=== PATIENT | male | born 1980 | race Caucasian/White ===

== ENCOUNTER 2019-08-06 06:52 | Inpatient (IN) | payer SELFPAY ==
[2019-08-06 07:27] LABS: #Lymphocytes 1.5 thou/uL (1.20-3.40); #Monocytes 0.6 thou/uL (0.11-0.59); #Neutrophils 11.5 thou/uL (1.40-6.50); %Basophils 0.2 % (0.0-1.0); %Eosinophils 0.2 % (0.0-10.0); %Lymphocytes 10.8 % (21.0-51.0); %Monocytes 4.1 % (0.0-10.0); %Neutrophils 84.7 % (42.0-75.0); Hemoglobin 16.3 g/dL (14.0-18.0); Mean Corpuscular HGB CONC 34.1 g/dL (32.0-36.0); Mean Corpuscular Volume 91.1 fL (78.0-98.0); Mean Platelet Volume 7.3 fL (7.4-10.4); Platelet Count 213 thou/uL (130-400); RBC Distribution Width 12.7 % (11.5-14.5); Red Blood Cell (RBC) Count 5.26 mill/uL (4.70-6.10); White Blood Cell (WBC) Count 13.6 thou/uL (4.8-10.8)
[2019-08-06 07:50] LABS: Phosphorus 2.7 mg/dL (2.3-4.7)
[2019-08-06 07:56] LABS: ALT (SGPT) 32 U/L (8-55); AST (SGOT) 17 U/L (5-34); Albumin 4.5 g/dL (3.5-5.0); Alkaline Phosphatase 105 U/L (40-110); Anion Gap 14 mmol/L (10-20); BUN (Urea Nitrogen) 17 mg/dL (8.9-20.6); Bilirubin, Total 0.4 mg/dL (0.2-1.2); CK (CPK) 71 U/L (30-200); Calc. Creatinine Clearance 0 mL/min (70-130); Calcium 9.9 mg/dL (7.8-10.44); Carbon Dioxide 21 mmol/L (22-29); Chloride 107 mmol/L (98-107); Estimated GFR-MDRD Greater than 90; Globulin 2.6 g/dL (2.4-3.5); Glucose 160 mg/dL (70-105); Magnesium 2.1 mg/dL (1.6-2.6); Protein, Total 7.1 g/dL (6.0-8.3); Sodium 140 mmol/L (136-145)
[2019-08-06 08:10] LABS: Potassium 2.2 mmol/L (3.5-5.1)
[2019-08-06] MEDS ORDERED: Potassium Chloride 20 MEQ TAB ONE (08:46)
[2019-08-06] MEDS ORDERED: Labetalol HCl 100 MG/20 ML VIAL SLOW IVP PRN (10:48)
[2019-08-06] MEDS ORDERED: Promethazine HCl 12.5 MG in Sodium Chloride 0.9% 50 ML IVPB PRN (10:48)
[2019-08-06] MEDS ORDERED: hydrALAZINE 20 MG/ML VIAL SLOW IVP PRN (10:48)
[2019-08-06] MEDS ORDERED: cloNIDine 0.1 MG TAB PO PRN (10:48)
[2019-08-06] MEDS ORDERED: Ondansetron PF 4 MG/2 ML Vial IVP PRN (10:48)
[2019-08-06] MEDS ORDERED: HYDROcodone/Acetaminophen 5/325 mg Tablet PO PRN (10:50)
[2019-08-06] MEDS ORDERED: Acetaminophen 325 MG TAB PO PRN (10:50)
--- NOTE | 2019-08-06 10:52 | PDOC.HHP ---
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 No episodes for last three years. In ED, potassium checked and was 2.2. when discussing case with him offered nephrology consult and intensive workup of this condition, he states instead he would rather have repletion of potassium and be discharged to resume normal activities. Hospitalist ROS - Review of Systems Constitutional: reports: weakness. denies: fever, chills Eyes: denies: pain, vision change ENT: denies: throat pain, throat swelling Respiratory: denies: cough, shortness of breath Cardiovascular: denies: chest pain, palpitations Gastrointestinal: denies: nausea, vomiting, abdominal pain Genitourinary: denies: dysuria, frequency Musculoskeletal: reports: other (diffuse pain and ache with movement) Skin: denies: rash, lesions, jose, bruising, other Neurological: reports: weakness (global). denies: numbness, incoordination, change in speech All other systems reviewed; all pertinent +/- noted in HPI/Subj Hospitalist History - Past Medical History Other Medical History: hypokalemia - Past Surgical History Other Surgical History: knee surgery - Family History Other Family History: hypokalemia - Social History Smoking Status: Current every day smoker Alcohol: reports: None Drugs: reports: none - Exam General Appearance: NAD, awake alert Eye: PERRL, anicteric sclera ENT: normocephalic atraumatic, no oropharyngeal lesions, moist mucosa Neck: supple, symmetric, no JVD, no thyromegaly, no lymphadenopathy, no carotid bruit Heart: RRR, no murmur, no gallops, no rubs, normal peripheral pulses Respiratory: CTAB, no wheezes, no rales, no ronchi, normal chest expansion, no tachypnea, normal percussion Gastrointestinal: soft, non-tender, non-distended, normal bowel sounds, no palpable masses, no hepatomegaly, no splenomegaly, no bruit Extremities: no cyanosis, no clubbing, no edema Skin: normal turgor, no lesions, no rashes Neurological: cranial nerve grossly intact, normal sensation to touch, no focal deficits, no new deficit Neurological - other findings: sensation preserved, motor function limited by pain Musculoskeletal: generalized weakness Musculoskeletal - other findings: weakness and pain with ROM of all extremities , can move alll extremities Psychiatric: normal affect, normal behavior, A&O x 3 Hospitalist Results - Labs Result Diagrams: 08/06/19 07:19 08/06/19 16:03 Lab results: WBC 13.6 thou/uL (4.8-10.8) H 08/06/19 07:19 Hgb 16.3 g/dL (14.0-18.0) 08/06/19 07:19 Hct 47.9 % (42.0-52.0) 08/06/19 07:19 MCV 91.1 fL (78.0-98.0) 08/06/19 07:19 Plt Count 213 thou/uL (130-400) 08/06/19 07:19 Neutrophils % 84.7 % (42.0-75.0) H 08/06/19 07:19 Sodium 140 mmol/L (136-145) 08/06/19 07:19 Potassium 2.2 mmol/L (3.5-5.1) L* 08/06/19 07:19 Chloride 107 mmol/L (98-107) 08/06/19 07:19 Carbon Dioxide 21 mmol/L (22-29) L 08/06/19 07:19 BUN 17 mg/dL (8.9-20.6) 08/06/19 07:19 Creatinine 0.81 mg/dL (0.7-1.3) 08/06/19 07:19 Glucose 160 mg/dL (70-105) H 08/06/19 07:19 Calcium 9.9 mg/dL (7.8-10.44) 08/06/19 07:19 Total Bilirubin 0.4 mg/dL (0.2-1.2) 08/06/19 07:19 AST 17 U/L (5-34) 08/06/19 07:19 ALT 32 U/L (8-55) 08/06/19 07:19 Alkaline Phosphatase 105 U/L (40-110) 08/06/19 07:19 Creatine Kinase 71 U/L (30-200) 08/06/19 07:19 Serum Total Protein 7.1 g/dL (6.0-8.3) 08/06/19 07:19 Albumin 4.5 g/dL (3.5-5.0) 08/06/19 07:19 Hospitalist H&P A/P - Problem (1) Hypokalemic periodic paralysis Code(s): G72.3 - PERIODIC PARALYSIS Status: Acute (2) Hypomagnesemia Code(s): E83.42 - HYPOMAGNESEMIA Status: Acute (3) Hypophosphatemia Code(s): E83.39 - OTHER DISORDERS OF PHOSPHORUS METABOLISM Status: Acute - Plan Plan: # hypokalemia - severe, reports history of "periodic hypokalemic paralysis" which presents like this every few years, potassium is very low and has been repleted with minimal improvement, will continue to trend BMP q8h and daily CBC and magnesium and replete as needed, initially was hopeful would be able to replete and discharge without issue however now am thinking patient will likely need nephrology consult if not imrpoved overnight with frequent potassium infusions. will monitor closely and further plan based on clinical progress
[2019-08-06] MEDS ORDERED: Morphine 2 MG/ML SYRINGE SLOW IVP PRN (15:44)
[2019-08-06] MEDS ORDERED: Morphine 2 MG/ML SYRINGE ONE (15:56)
[2019-08-06] MEDS ORDERED: Potassium Chloride 40 MEQ in Sodium Chloride 0.9% 250 ML 250 ML IVPB SCH (16:00)
[2019-08-06 16:52] LABS: Anion Gap 10 mmol/L (10-20); BUN (Urea Nitrogen) 16 mg/dL (8.9-20.6); Calc. Creatinine Clearance 0 mL/min (70-130); Calcium 8.4 mg/dL (7.8-10.44); Carbon Dioxide 21 mmol/L (22-29); Chloride 111 mmol/L (98-107); Estimated GFR-MDRD Greater than 90; Glucose 98 mg/dL (70-105); Magnesium 1.9 mg/dL (1.6-2.6); Sodium 140 mmol/L (136-145)
[2019-08-06] MEDS: Senokot S 8.6-50 MG TAB PO SCH (21:13)
[2019-08-06] MEDS: Potassium Chloride 20 MEQ in Premix Bag 1 BAG IVPB SCH ×3 (21:13→22:36)
[2019-08-06 22:00] VITALS: BMI 32.0
[2019-08-06] MEDS: predniSONE 20 MG TAB PO SCH (22:36)
[2019-08-07 00:58] LABS: Anion Gap 10 mmol/L (10-20); BUN (Urea Nitrogen) 17 mg/dL (8.9-20.6); Calc. Creatinine Clearance 217 mL/min (70-130); Calcium 8.2 mg/dL (7.8-10.44); Carbon Dioxide 26 mmol/L (22-29); Chloride 109 mmol/L (98-107); Estimated GFR-MDRD Greater than 90; Glucose 100 mg/dL (70-105); Potassium 4.4 mmol/L (3.5-5.1); Sodium 141 mmol/L (136-145)
[2019-08-07 04:21] LABS: #Eosinphils 0.1 thou/uL (0.0-0.7); #Lymphocytes 1.7 thou/uL (1.20-3.40); #Monocytes 0.5 thou/uL (0.11-0.59); #Neutrophils 8.1 thou/uL (1.40-6.50); %Basophils 0.3 % (0.0-1.0); %Eosinophils 0.7 % (0.0-10.0); %Lymphocytes 16.1 % (21.0-51.0); %Monocytes 4.4 % (0.0-10.0); %Neutrophils 78.4 % (42.0-75.0); Hemoglobin 14.7 g/dL (14.0-18.0); Mean Corpuscular HGB CONC 33.9 g/dL (32.0-36.0); Mean Corpuscular Volume 91.3 fL (78.0-98.0); Mean Platelet Volume 7.9 fL (7.4-10.4); Platelet Count 181 thou/uL (130-400); Red Blood Cell (RBC) Count 4.75 mill/uL (4.70-6.10); White Blood Cell (WBC) Count 10.3 thou/uL (4.8-10.8)
[2019-08-07 07:44] VITALS: TEMP 99
[2019-08-07 08:31] LABS: Anion Gap 12 mmol/L (10-20); BUN (Urea Nitrogen) 12 mg/dL (8.9-20.6); Calc. Creatinine Clearance 222 mL/min (70-130); Calcium 8.8 mg/dL (7.8-10.44); Carbon Dioxide 24 mmol/L (22-29); Chloride 106 mmol/L (98-107); Estimated GFR-MDRD Greater than 90; Glucose 157 mg/dL (70-105); Potassium 4.7 mmol/L (3.5-5.1); Sodium 137 mmol/L (136-145)
[2019-08-07] MEDS ORDERED: Polyethylene Glycol 3350 17 GM Packet PO SCH (09:00)
[2019-08-07] MEDS ORDERED: Enoxaparin Sodium 40 MG/0.4 ML SYRINGE SC SCH (09:00)
[2019-08-07] MEDS: predniSONE 20 MG TAB PO SCH (09:41)
[2019-08-07] MEDS: Senokot S 8.6-50 MG TAB PO SCH (09:41)
[2019-08-07 10:32] VITALS: BP 141/89
--- NOTE | 2019-08-07 19:13 | DIS ---
DATE OF ADMISSION: 08/06/2019 DATE OF DISCHARGE: 08/07/2019 PRIMARY CARE PROVIDER: Unknown. DISCHARGE DIAGNOSES: 1. Hypokalemia. 2. History of hypokalemic periodic paralysis. CONDITION OF THE PATIENT ON DAY OF DISCHARGE: Stable. I assessed Mr. Rodriguez on the day of discharge. He denies any chest pain or shortness of breath. Vital signs are stable. S1 and S2 are heard, regular. Lungs are clear to auscultation bilaterally. HOSPITAL COURSE: Mr. Rodriguez is a pleasant 38-year-old gentleman, who was admitted to [facility] on 08/06/2019, for severe hyperkalemia, with a potassium of 2.2. He received potassium supplementation. He was seen by Nephrology Service. Potassium level normalized. He is being discharged home in a stable condition. On the day of discharge, he has sodium 137, potassium 4.7, creatinine 0.76. White count 10,300, hemoglobin 14.7, and platelet count 181,000. Many thanks for allowing me to participate in your patient's care. Please feel free to contact me with any questions or concerns. POST ACUTE CARE FOLLOWUP: With primary care provider in 1 week time and with Nephrology Service in 1 week time. ACTIVITY: No restrictions. DIET: Regular diet. DISCHARGE DESTINATION: Home. TIME SPENT: Total amount of time spent coordinating this discharge: 15 minutes. Job ID: [id number]
[2019-08-07] MEDS ORDERED: FLU VACC QS2019-20(6MOS UP)/PF 60 MCG/0.5 ML SYRINGE IM ONE (21:00)
== END 2019-08-07 10:30 | disposition home or self-care (01) | DRG 93 ==
LOC: ERS 06:52 → ERHOLD 09:24 → 2NO 20:44
PROVIDERS: ADMIT Internal Medicine; ATTEND Internal Medicine
DX: G72.3 Periodic paralysis (principal); E83.42 Hypomagnesemia; E83.39 Other disorders of phosphorus metabolism; F17.200 Nicotine dependence, unspecified, uncomplicated
CPT/HCPCS: 36415; 80048; 80053; 82550; 83735; 84100; 85025; 93005; J2270; J2550; J3480; J7050; J7512